=== PATIENT | female | born 1960 | race Caucasian/White ===

== ENCOUNTER 2023-01-30 08:43 | Outpatient (CLI) | payer OTHER ==
--- NOTE | 2023-01-30 09:42 | SLEEP CARE CONSULTATION ---
Information from patient questionnaire entered by Morgan Hill. I have reviewed and concur with the information entered by Morgan Hill. This document represents the service I personally performed and the decisions made by me, Debby Lanza ARNP. History of Present Illness Service Date and Time: 01/30/2023 0843 Reason for Visit: New patient, sleep apnea on CPAP therapy Chief Complaint: reports: Other ([facility], [facility] ) Usual bedtime: 1030PM Time it takes to fall asleep: 15MIN Snores at night: Yes Observed to quit breathing while asleep: Yes Sleeps alone due to snoring: Yes Number of times waking at night: 1, not every night Reasons for waking at night: reports: Bathroom Toss, Turn, or Twitch while sleeping: No Recalls having dreams: Yes Usually gets out of bed at: [id number] Feels refreshed in the morning: Yes (sometimes) Morning headache: No Sleepy or fatigued during the day: No Ever fallen asleep while driving: No Takes day naps: No Prior sleep studies: Yes Year and Where: [place] [id number] Additional HPI information: LEA GARZA was previously diagnosed to have severe, AHI 41.3, obstructive sleep apnea-hypopnea syndrome documented in PSG done 04/27/2019 and comes in to day to establish care for CPAP therapy. - Parasomnia Symptoms Ever been unable to move upon waking from sleep: No Walks in sleep: No Talks in sleep: No Ever acted out dreams in sleep: No Ever felt weak in the knees when startled or emotional: No Bothered by creepy, crawly, restless sensations in legs: Yes Problems with memory or concentration: No CPAP Compliance Data - Data Reviewed with Patient Average duration of nightly device use: 6 hours 47 minutes Compliance rate %: 97 (89/90 days used) Current pressure setting (cmH2O): 10-16 (95th 12.4, max 13.3) Average residual AHI: 2.0 Central apnea: 0.9 Obstructive apnea: 0.7 Compliance data discussion: She has a Resmed Airsense 10 that she got in 07/2019. She is getting her supplies from [facility], she has to talk to them about deliveries because they don't always get all her supplies to her at once. She is using a [employer]. 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 Patient is and lives in [place]. Have you smoked in the past 12 months: No Alcohol use: Yes Alcohol amount and frequency: 1-2 A WEEK OR LESS Caffeine use: Yes Caffeine amount and frequency: 1 1-3 MONTH Family History Family history of sleep disordered breathing: Yes Family Hx Sleep Apnea: Mother: Snoring, Sibling: Snoring, Sleep apnea - Untreated Allergies and Home Medications Known drug allergies: No Drug allergies reviewed: Yes Home medication list reviewed: Yes (no daily prescribed medications) Allergy and home medication list: Allergies No Known Drug Allergies Allergy (Verified 01/29/23 14:24) Review of Systems Cardiovascular: denies: high blood pressure Respiratory: denies: shortness of breath Gastrointestinal: denies: heartburn Neurological: denies: headaches Psychiatric: denies: Attention Deficit Hyperactivity, anxiety, depression Ear/Nose/Throat: denies: tonsillectomy Endocrine: denies: thyroid disease Immunologic: denies: allergies to food or environment Physical Exam Vital signs obtained and entered by: MORGAN Mancia MA Blood Pressure: 142/90 (LEFT ARM) Cuff size: long Heart Rate: 67 O2 Saturation: 97 Height: 5 ft 4 in Weight: 228 lb 12.8 oz Body Mass Index: 39.2 BMI Classification: Obese Neck circumference: 17 Heart: regular rate and rhythm Lungs: clear bilaterally Impression and Plan 1. Obstructive Sleep Apnea-Hypopnea Syndrome, severe, with good treatment compliance and good apnea control. On CPAP therapy, the patient has better sleep quality and is more rested overall. She feels that she needs more pressure when she initially puts on her mask. I will increase ramp starting pressure to 6 cmH2O and adjust her pressure to 12-16 cmH2O for patient comfort. She also states she has some burping issue that she is not sure if the bloating/burping is from the CPAP or her dietary changes with increasing fiber in her diet. After some discussion, she will monitor this issue with the changes and let me know if the pressure change is making things worse or is uncomfortable. She voiced understanding and agreement. Patient's apnea severity and rationale for treatment to reduce apnea, improve sleep quality and reduce cardiovascular and cerebrovascular events was reviewed. I also reviewed the benefit of consistent device use of CPAP for pre-diabetes. 2. Obesity, unspecified. Currently patients BMI is 39.2. Obesity increases the risk of apnea, CPAP pressure requirements and overall health risks especially cardiovascular and diabetes. Thus patient is advised to lose weight. * Change auto CPAP pressure to 12-16 cmH2O * Increase ramp starting pressure to 6 cmH2O * Update supplies * Notify me if snoring with mask or feeling that the pressure is too much or too little * Attempt to lose weight * Call this office if any problems using CPAP * Return for follow up in 1 year, or sooner if concerns arise Counseling Topics: Spare mask, Weight loss health impact Prescriptions: Device supplies Visit Type: In Office Time Spent with Patient (minutes): 44 Provider Statement: I spent 100% of the Face to Face Visit with the patient with greater than 50% spent counseling the patient and coordination of care.
[2023-01-30 09:48] VITALS: BP 142/90
== END 2023-01-30 08:44 | disposition home or self-care (01) ==
LOC: SC 08:43
PROVIDERS: ATTEND Nurse Practitioner Family
DX: G47.33 Obstructive sleep apnea (adult) (pediatric) (principal); E66.9 Obesity, unspecified; Z68.39 Body mass index [BMI] 39.0-39.9, adult
CPT/HCPCS: 99203; 99212

== ENCOUNTER 2024-01-31 08:27 | Outpatient (CLI) | payer OTHER ==
--- NOTE | 2024-01-31 09:03 | Sleep Patient Instructions ---
Sleep Center Visit Summary - Patient Visit Information Reason for Visit: Annual follow-up - Patient Instructions Additional Instructions: You will continue with CPAP therapy with pressure set at 12-16 cmH2O. A supply prescription will be updated with your DME. We encourage you to continue to try to lose weight. Please follow up with the sleep care office in 1 year. - Clinic Information Contact: [facility] [address] [place] [address] [email or web address] T: [phone]
--- NOTE | 2024-01-31 09:08 | SLEEP CARE CONSULTATION ---
Information from patient questionnaire entered by Virgen Hill. I have reviewed and concur with the information entered by Virgen Hill. This document represents the service I personally performed and the decisions made by , Debby Lanza ARNP. History of Present Illness Service Date and Time: 01/31/2024826 Previous diagnosis: Severe, Obstructive Sleep Apnea-Hypopnea Syndrome AHI: 41.3 (on 04/27/2019) Reason for follow up: annual (LAST SEEN 01/2023) Equipment type: CPAP (RESMED Airsense 10, 07/08/2019) Equipment obtained from: Other ([employer]) Mask style: Nasal Mask brand: Respironics (Dream Wisp) Backup mask available: Yes (old mask) Last cushion change: last month Prior sleep studies: Yes Year and Where: [facility] 2018 HPI additional information: LEA GARZA was diagnosed to have severe, AHI 41.3, obstructive sleep apnea- hypopnea syndrome and returned today for CPAP therapy annual follow-up. Sleep Study - Results Prior sleep studies: Yes Year and Where: [facility] 2018 CPAP Compliance Data - Data Reviewed with Patient Average duration of nightly device use: 7 HRS 16 MINS Compliance rate %: 97 (01/29/23-01/28/24; 362/365 days used) Current pressure setting (cmH2O): 12-16 Average residual AHI: 2.1 Central apnea: 1 Obstructive apnea: 0.6 Hypopnea: 0.5 Average large leak: 1.3 L/min Subjective Patient concerns: reports: mask discomfort (tightness to keep mask cushion sealed), air blowing in eyes, other (bloated face, somtimes). denies: aerophagia, mask leak noise, condensation in mask/hose, nasal congestion, dry mouth, nose, throat, epistaxis Observed to snore while using device: No Current pressure setting perceived as: comfortable On therapy, patient: reports: sleeping better, awakening more refreshed, being more awake and alert during the day, more rested overall. denies: drowsiness while driving Initial [place] Sleepiness Scale score: 4 (01/10/23) Current [place] Sleepiness Scale score: 6 Allergies and Home Medications Known drug allergies: No Drug allergies reviewed: Yes Home medication list reviewed: Yes (Jessica) Allergy and home medication list: Allergies No Known Drug Allergies Allergy (Verified 01/29/24 08:30) Review of Systems Review of systems same as previous: Yes (no changes) Physical Exam Vital signs obtained and entered by: Debby London NP Blood Pressure: 143/88 Cuff size: long (right arm) Heart Rate: 66 O2 Saturation: 98 Height: 5 ft 4 in Weight: 236 lb 3.2 oz Weight change since last visit: 8 lb gain Body Mass Index: 40.5 BMI Classification: Morbidly Obese Impression and Plan 1. Obstructive Sleep Apnea-Hypopnea Syndrome, severe, with good treatment compliance and good apnea control. On CPAP therapy, the patient has better sleep quality and is more rested overall. Patient asked about having to tighten her mask so much which causes indentations on her face. She says she has to tighten it this much so that when she moves the cushion is not displaced. She wonders if a different mask would be more comfortable. I fit her to a Brandizi small nasal cushion to try at home, the kit also included small gel nasal pillows. She is going to try these at home and will let me know if she wants to change her mask type. Patient has significant improvement of their sleep apnea and is satisfied with current CPAP therapy. Patient's apnea severity and rationale for treatment to reduce apnea, improve sleep quality and reduce cardiovascular and cerebrovascular events was reviewed. I also reviewed the benefit of consistent device use of CPAP for diabetes. 2. Obesity, unspecified. Currently patients BMI is 40.5. She has gained weight. Obesity increases the risk of apnea, CPAP pressure requirements and overall health risks especially cardiovascular and diabetes. Thus patient is advised to lose weight. * Continue auto CPAP pressure at 12-16 cmH2O * Update supply prescription. * Notify me if snoring with mask or feeling that the pressure is too much or too little * Attempt to lose weight * Call this office if any problems using CPAP * Return for follow up in 12 months, or sooner if concerns arise Counseling Topics: Spare mask, Weight loss health impact Prescriptions: Device supplies Follow up with Sleep Care in: 1 year Visit Type: In Office Time Spent with Patient (minutes): 28 Provider Statement: I spent 100% of the Face to Face Visit with the patient with greater than 50% spent counseling the patient and coordination of care.
[2024-01-31 09:15] VITALS: BP 143/88; O2SAT 98
== END 2024-01-31 08:28 | disposition home or self-care (01) ==
LOC: SC 08:27
PROVIDERS: ATTEND Nurse Practitioner Family
DX: G47.33 Obstructive sleep apnea (adult) (pediatric) (principal); E66.01 Morbid (severe) obesity due to excess calories; Z68.41 Body mass index [BMI] 40.0-44.9, adult
CPT/HCPCS: 99212; 99213